=== PATIENT | male | born 1945 | race Caucasian/White ===

== ENCOUNTER → 2021-01-30 | Outpatient (CLI) | payer MEDICARE ==
--- NOTE | 2021-01-30 10:56 | CTL ---
EXAMINATION TYPE: CT Low Dose Lung DATE OF EXAM ORDERED: 01/30/2021 HISTORY: . Lung cancer screening CT DLP: 59.[address] CTDI: 1.50 mGy Automated exposure control for dose reduction was used. SCREENING VISIT: COMPARISON: TECHNIQUE: Low dose computed tomography scan was performed through the chest at 1 mm thick sections a nd reconstructed images in multiple planes at 1 mm and [address] DIAGNOSTIC QUALITY: Satisfactory FINDINGS: Biapical pleural thickening with pleural-based calcifications. There is interlobular septal thickenin g correlate for chronic interstitial pulmonary fibrosis. Emphysematous changes noted there is central bronchiectasis. There is a 5 mm subpleural nodule right superior lung apex and calcified nodule left lung apex manager wound iorly. Additional tiny sub-5 mm subpleural nodules noted. No consolidative pneumonia. Pleural-based thickening noted bilaterally. No pneumothorax or pleural ef fusion. Calcified benign granuloma measuring 7 mm left lower lobe. There is dense coronary artery calcification. Shotty adenopathy in the mediastinum with calcified lym ph nodes noted in the hilum. Heart size normal. Hypertrophic and degenerative change of the spine. There are splenic granuloma. IMPRESSION: 1. 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 2. Calcified benign nodule left lower lobe measuring 7 mm. Additional subpleural nodules as discussed above. 3. Basilar bronchiectasis with scattered areas of subsegmental consolidation most typical of atelecta sis. 4. pleural thickening and calcification correlate for asbestos related disease. CT LUNG RAD AND CT CHEST RECOMMENDATION: Lung-Rad 2 Benign Appearance or Behavior: Continue annual sc reening with LDCT in 12 months.
== END | disposition home or self-care (01) ==
LOC: RADCTMAIN 09:27
PROVIDERS: ATTEND Family Medicine
DX: Z12.2 Encounter for screening for malignant neoplasm of respiratory organs (principal); J44.9 Chronic obstructive pulmonary disease, unspecified; J47.9 Bronchiectasis, uncomplicated; J84.10 Pulmonary fibrosis, unspecified; R91.8 Other nonspecific abnormal finding of lung field
CPT/HCPCS: 71271

== ENCOUNTER 2022-06-15 13:06 | Day surgery (SDC) | payer MEDICARE ==
[~2022-06-15 13:06] MED LIST: SODIUM CHLORIDE 0.9% 1,000 ML IV SCH
[2022-06-15] MEDS ORDERED: SODIUM CHLORIDE 0.9% 1,000 ML IV ONE (13:29)
[2022-06-15 14:00] LABS: African American GFR (CKD) >90 (>60 ml/min/1.73 sqM); Anion Gap 7 mmol/L; Basophils # (A) 0.1 k/uL (0-0.2); Basophils % (A) 1 %; Blood Urea Nitrogen 10 mg/dL (9-20); Calcium 9.1 mg/dL (8.4-10.2); Carbon Dioxide 24 mmol/L (22-30); Chloride 106 mmol/L (98-107); Eosinophils # (A) 0.1 k/uL (0-0.7); Eosinophils % (A) 1 %; Glucose 105 mg/dL (74-99); HCT 39.9 % (39.0-53.0); HGB 13.3 gm/dL (13.0-17.5); Lymphocytes # (A) 2.9 k/uL (1.0-4.8); Lymphocytes % (A) 39 %; MCH 34.7 pg (25.0-35.0); MCHC 33.5 g/dL (31.0-37.0); MCV 103.7 fL (80.0-100.0); Macrocytosis Slight; Mean Platelet Volume 7.7; Monocytes # (A) 0.4 k/uL (0-1.0); Monocytes % (A) 6 %; Neutrophils # (A) 3.8 k/uL (1.3-7.7); Neutrophils % (A) 51 %; Non-African American GFR(CKD) 88 (>60 ml/min/1.73 sqM); Platelet Count 199 k/uL (150-450); Potassium 3.9 mmol/L (3.5-5.1); RBC 3.84 m/uL (4.30-5.90); RDW 11.7 % (11.5-15.5); Sodium 137 mmol/L (137-145); WBC 7.3 k/uL (3.8-10.6)
[2022-06-15] MEDS ORDERED: ISOPROTERENOL 250 MCG/1.25 ML SYR IV ONE (14:33)
[2022-06-15] MEDS ORDERED: SUCCINYLCHOLINE CHLORIDE 200 MG/10 ML VIAL IV ONE (14:33)
[2022-06-15] MEDS ORDERED: PHENYLEPHRINE-0.9% NACL SYG 1,000 MCG/10 ML SYRINGE ONE (14:33)
[2022-06-15] MEDS ORDERED: MIDAZOLAM 2 MG/2 ML VIAL ONE (14:33)
[2022-06-15] MEDS ORDERED: PROPOFOL 10 MG/ML 20 ML VIAL IV ONE (14:33)
[2022-06-15] MEDS ORDERED: HEPARIN SODIUM,PORCINE 10,000 UNIT/ML 1 ML VIAL ONE (14:33)
[2022-06-15] MEDS ORDERED: LIDOCAINE 2% INJ 20 MG/ML (2 ML VIAL) ONE (14:33)
[2022-06-15] MEDS ORDERED: fentaNYL (PF) 50 MCG/ML 2 ML AMP ONE (14:33)
[2022-06-15] MEDS ORDERED: LIDOCAINE 1% INJ 10MG/ML (20 ML MDV) ONE (14:35)
[2022-06-15] MEDS ORDERED: HEPARIN SOD,PORK IN 0.45% NACL 25,000 UNIT in 0.45% NACL 1 250ML.BAG IV ONE (14:45)
--- NOTE | 2022-06-15 14:49 | P.HPCAR ---
History of Present Illness This is Dr. Capone dictating an H/P on this patient The patient was interviewed and examined IMPRESSION / ASSESSMENT: Paroxysmal atrial fibrillation with RVR with preserved LV systolic function, right bundle branch block pattern and normal LV function Remote history of TIA currently on statins and aspirin Takes ELIQUIS intubated this morning as instructed Preserved LV systolic function on 2-D echo PLAN: A. fib ablation to be performed Continue ELIQUIS HPI Patient has a history of recurrent palpitations We have documented paroxysmal atrial fibrillation He's had an admission for A. fib with RVR He's had a stroke in 2012 TSH has been normal at 2.6 His LDL is well controlled on pravastatin His 2-D echo is normal ROS: No fever chills or rigors, no cough, phlegm or expectoration, no nausea, vomiting or diarrhea, no hematuria, dysuria, no musculoskeletal complaints, no strokes or seizures, no skin lesions. EXAMINATION: Afebrile 97.7F, pulse rate in the 80s, blood pressure 143/81 mmHg No JVD No orthopnea Clear lungs no rhonchi no crackles Normal heart sounds normal S1 normal S2 Abdomen is soft nontender Extremities are warm no edema REVIEW OF LABS, ECG & MEDICAL DATA White count 7.3 thousand Hemoglobin 13.3, platelet count 199,000 Sodium 137, potassium 3.9 BUN 10 and creatinine 0.77 Physical Exam Vitals: Vital Signs Temp Pulse Resp BP Pulse Ox 06/15/22 13:44 97.7 F 83 16 143/81 98 Intake and Output 06/14/22 06/15/22 06/15/22 22:59 06:59 14:59 Intake Total 0 Balance 0 Intake: IV 0 Other: Weight 72.2 kg Past Medical History Past Medical History: COPD, CVA/TIA, Hyperlipidemia Additional Past Medical History / Comment(s): see Dr Capone H&P, occasional diarrhea, hx intermittent SOB before medications per pt. History of Any Multi-Drug Resistant Organisms: None Reported Additional Past Surgical History / Comment(s): sx of ruptured disc in back. colonoscopy, cataracts with lenses Past Anesthesia/Blood Transfusion Reactions: No Reported Reaction Additional Past Anesthesia/Blood Transfusion Reaction / Comment(s): no blood transfusions Smoking Status: Former smoker - Past Family History Father Additional Family Medical History / Comment(s): kidney issues Sister(s) Family Medical History: Cancer Additional Family Medical History / Comment(s): sinus cancer. Physical Examination Vital Signs Temp Pulse Resp BP Pulse Ox 06/15/22 13:44 97.7 F 83 16 143/81 98 Intake and Output 06/14/22 06/15/22 06/15/22 22:59 06:59 14:59 Intake Total 0 Balance 0 Intake: IV 0 Other: Weight 72.2 kg Results 06/15/22 13:37 06/15/22 13:37 CBC 06/15/22 Range/Units 13:37 WBC 7.3 (3.8-10.6) k/uL RBC 3.84 L (4.30-5.90) m/uL Hgb 13.3 (13.0-17.5) gm/dL Hct 39.9 (39.0-53.0) % Plt Count 199 (150-450) k/uL Comprehensive Metabolic Panel 06/15/22 Range/Units 13:37 Sodium 137 (137-145) mmol/L Potassium 3.9 (3.5-5.1) mmol/L Chloride 106 (98-107) mmol/L Carbon Dioxide 24 (22-30) mmol/L BUN 10 (9-20) mg/dL Creatinine 0.77 (0.66-1.25) mg/dL Glucose 105 H (74-99) mg/dL Calcium 9.1 (8.4-10.2) mg/dL Current Medications Generic Name Dose Route Start Last Admin Trade Name Freq PRN Reason Stop Dose Admin Sodium Chloride 1,000 mls @ 20 mls/hr 06/15/22 06:01 Saline 0.9% IV 07/15/22 06:02 .Q24H CRISTELA Intake and Output 06/14/22 06/15/22 06/15/22 22:59 06:59 14:59 Intake Total 0 Balance 0 Intake: IV 0 Other: Weight 72.2 kg Patient Weight 06/16/22 06:59 Weight 72.2 kg 06/15/22 13:37 06/15/22 13:37
[2022-06-15] MEDS ORDERED: ACETAMINOPHEN TAB 325 MG TAB PO PRN ×2 (14:50→18:33)
[2022-06-15] MEDS ORDERED: LIDOCAINE 1% INJ 10MG/ML (20 ML MDV) SQ ONE (15:31)
[2022-06-15] MEDS ORDERED: IOPAMIDOL-370 100ML BTL INJ ONE (17:35)
--- NOTE | 2022-06-15 18:43 | P.EPPROC ---
- EP Procedure Note Electrophysiology Procedure Note: PROCEDURE A. fib ablation with DIAGNOSIS Atrial fibrillation, symptomatic, refractory to therapy RESULT No left atrial appendage mass seen on intracardiac echo: Normal LV function Successful A. fib ablation/pulmonary vein isolation of all veins using cryo- ablation Complete entrance block in all 4 veins confirmed Esophageal deflection YES PROCEDURE DETAILS Written informed consent prior to procedure. Patient brought to the EP lab. General anesthesia given. Heparin administered. A city maintained above 300 seconds Both groins prepped and draped per protocol and venous sheaths placed. Esophagus intubated, circa catheter for temperature monitoring an endoscope for possible esophageal deflection. Phrenic nerve monitoring performed. Esophageal temperature monitoring performed. Esophageal deflection performed if circa catheter overlapping with the balloon or circa temperature less than 27.5C Intracardiac echocardiography performed. Pericardium evaluated. Left atrial appendage evaluated. Left atrium evaluated along with pulmonary veins Transseptal catheterization performed under fluoroscopic guidance and intracardiac echo guidance Cryoablation sheath exchanged, balloon catheter along with achieve catheter placed in the left atrium. Pulmonary veins isolated in the following sequence: Left superior pulmonary vein followed by left inferior pulmonary vein, followed by right inferior pulmonary vein and lastly right superior pulmonary vein. Phrenic nerve stimulation along with capture thresholds within the SVC and right superior pulmonary vein to identify the phrenic nerve proximity to the cryo- balloon. Pulmonary veins isolated and confirmed with entrance and exit block. Phrenic nerve integrity confirmed at the end of the procedure Ablation of the left atrial septum performed with cannulation of the superior branch of the right inferior or the inferior branch of the right superior vein to achieve ablation of the posterior septum of the left atrium. Ablation of electrograms confirmed. There was a lianet of fair distance between the right superior and right inferior veins and therefore the upper tributary of the right inferior vein was cannulated 9 almost her right middle vein). There was no evidence for phrenic nerve stimulation within this vein. Cryoablation was performed. -30C noted at 30 seconds, -40C noted at 60 seconds. At 123 seconds there was paresis noted of the phrenic nerve and cryoablation was terminated instantly. Rapid Recovery of phrenic nerve function within 3-4 minutes. At the end of the procedure complete recovery of strength of the diaphragm noted. This occurred despite a negative phrenic nerve stimulation within this vein at high output Diagnostic catheters for the high right atrium, His bundle, coronary sinus placed. LA and RA pressures recorded RA pressure: 9/2/5 LA pressure: 15/0/6 Diagnostic EP study with coronary sinus pacing and recording Baseline measurements: Sinus cycle length 740 ms, NJ interval 153 ms, QRS 196 ms and QT 360 ms AH 61 and HV 45 ms AV node Wenckebach block 330 ms. On Isuprel AV node Wenckebach block 270 ms On Isuprel high dose, burst stimulation was performed from the high right atrium from 400 ms down to 200 ms. No atrial fibrillation induced Venous sheaths were removed and hemostasis assured with a closure device. Patient extubated and transferred to recovery Increase procedural time During ablation multiple attempts had to be made to move the esophagus a safe distance of the from the pulmonary vein draining cryoablation, to avoid excessive thermal cooling of the esophagus This took extra time and effort to keep the esophagus a safe distance away from the cryoablation balloon. Left-sided esophagus During ablation of the right-sided veins, phrenic nerve stimulation was not noted within the right-sided veins, either right superior orbital right inferior vein transit. We'll paresis was noted despite that but with very rapid and complete recovery of strength of the diaphragmatic contraction. We monitored the phrenic nerve for additional 32 minutes an established complete recovery of strength of the diaphragm at the end of the procedure PROCEDURES PERFORMED Diagnostic EP study CS pacing and recording Left and right transseptal catheterization Catheter the mapping of the tachycardia Intracardiac echocardiography Pulmonary vein isolation with transseptal and comprehensive EPS, 19519 Extended procedure duration Drug infusion, +26902 Left atrial roof line, +14114 Linear ablation, left atrium, +07026 Electrical cardioversion with a synchronized shock across the chest [id number]
[2022-06-15] MEDS: ACETAMINOPHEN IV (For NPO) 1,000 MG in EMPTY BAG 1 BAG IVPB ONE ×2 (18:59→19:14)
[2022-06-15] MEDS: PRAVASTATIN SODIUM 20 MG TAB PO SCH (20:12)
[2022-06-15] MEDS: APIXABAN 5 MG TAB PO SCH (20:12)
[2022-06-15] MEDS: BENZOCAINE/MENTHOL LOZENG 1 EACH LOZENGE MUCOUS MEM PRN (20:52)
[2022-06-16] MEDS: BENZOCAINE/MENTHOL LOZENG 1 EACH LOZENGE MUCOUS MEM PRN (01:24)
--- NOTE | 2022-06-16 08:26 | P.PN ---
Progress Note - Text Patient complains sore throat. Mild swelling of the lip with bruising No breathing trouble no respiratory distress Resting comfortably in bed supine On examination no hematoma and groins but the puncture site/incision site in the right groin is oozing has been losing blood It has not let up all night long but response to pressure and then status post again There is no hematoma or swelling at all On examination heart sounds are normal normal S1 normal S2 Breath sounds are clear Blood pressure 115 06 5 mmHg afebrile ulcerate in the 80s Twelve-lead EKG shows a right bundle branch block pattern sinus mechanism Impression Postoperative groin bleeding from the right groin track without any hematoma He has not responded to local pressure The Analia patch was placed today and he will be monitored for the next 24 hours to watch for any bleeding or bruising currently hematoma development Continue current medications including anticoagulation Likely discharge tomorrow Patient ambulate in the room after 2 hours of placement of the Analia patch
[2022-06-16] MEDS: APIXABAN 5 MG TAB PO SCH ×2 (09:13→20:43)
[2022-06-16] MEDS: ASPIRIN 81 MG PO SCH (09:13)
[2022-06-16] MEDS: METOPROLOL SUCCINATE (ER) 25 MG TAB.ER.24H PO SCH (09:13)
[2022-06-16] MEDS ORDERED: IBUPROFEN 400 MG TAB PO STA (15:52)
[2022-06-16] MEDS: PRAVASTATIN SODIUM 20 MG TAB PO SCH (20:43)
[2022-06-17 04:03] VITALS: TEMP 98.2
[2022-06-17] MEDS: ASPIRIN 81 MG PO SCH (08:49)
[2022-06-17] MEDS: METOPROLOL SUCCINATE (ER) 25 MG TAB.ER.24H PO SCH (08:49)
[2022-06-17] MEDS: APIXABAN 5 MG TAB PO SCH (08:49)
[2022-06-17] MEDS ORDERED: ACETAMINOPHEN TAB 325 MG TAB PO PRN (09:09)
[2022-06-17 09:59] VITALS: BP 116/71; PULSE 83; RESP 16
[2022-06-17] MEDS ORDERED: CEPHALEXIN 500 MG CAP PO STA (10:00)
--- NOTE | 2022-06-17 20:08 | P.DS ---
Providers Attending physician: Federico Capone Primary care physician: [facility] Course: Patient is doing well. Groin site is healed well line no hematoma line no chest discomfort He is a sore throat Patient underwent successful A. fib ablation He had oozing from the access site track but without any hematoma or swelling or pseudoaneurysm He was kept overnight for pressure application Analia patch was used to control oozing Pressure dressing was applied. On examination his heart sounds are normal Breath sounds are clear Vitals are stable Impression Successful A. fib ablation No vascular injury, no hematoma no pseudoaneurysm Oozing from the incision track on the right side that is controlled with pressure application successfully Plan continue current medications including ELIQUIS follow-up in the office Plan - Discharge Summary Discharge Rx Participant: No New Discharge Prescriptions: Continue Metoprolol Succinate [Metoprolol Succinate ER] 25 mg PO DAILY Apixaban [Eliquis] 5 mg PO BID Pravastatin Sodium [Pravachol] 20 mg PO HS Cyanocobalamin (Vitamin B-12) [Vitamin B-12] 1,000 mcg PO DAILY Cholestyramine (with Sugar) [Cholestyramine Packet] 4 gm PO DAILY Aspirin 81 mg PO DAILY Discharge Medication List Apixaban [Eliquis] 5 mg PO BID 06/10/22 [History] Aspirin 81 mg PO DAILY 06/10/22 [History] Cholestyramine (with Sugar) [Cholestyramine Packet] 4 gm PO DAILY 06/10/22 [History] Cyanocobalamin (Vitamin B-12) [Vitamin B-12] 1,000 mcg PO DAILY 06/10/22 [History] Metoprolol Succinate [Metoprolol Succinate ER] 25 mg PO DAILY 06/10/22 [History] Pravastatin Sodium [Pravachol] 20 mg PO HS 06/10/22 [History] Follow up Appointment(s)/Referral(s): Aj Givens DO [STAFF PHYSICIAN] - 06/24/22 2:45 pm Patient Instructions/Handouts: Cardiac Ablation (DC) Activity/Diet/Wound Care/Special Instructions: Post EP study - Ablation instructions 1. Keep access sites dry for 2 days. 2. No heavy lifting or straining for 2 days. 3. Avoid bending the hips repeatedly for 2 days. 4. You may go up and down stairs slowly Call if the following is noted 1. Bleeding, increasing swelling or pain at the access sites. 2. Increasing chest discomfort, especially upon taking a deep breath. 3. Increasing shortness of breath, at rest or with exertion. 4. Undue cough / phlegm 5. Difficulty or pain while swallowing. 6. Pain or change in color in the extremities. 7. Fever, chills, rigors. 8. Increasing headache or neurologic symptoms. 9. Dizziness, fainting, palpitations Continue anticoagulation with ELIQUIS Discharge Disposition: HOME SELF-CARE
--- NOTE | 2022-06-17 20:09 | P.PN ---
Progress Note - Text Attention medical records/billing division staff members Patient did not have any vascular injury, hematoma, pseudoaneurysm This is not a complication of the procedure Oozing from under the skin was controlled with pressure dressing
== END 2022-06-17 11:39 | disposition home or self-care (01) ==
LOC: CATHEP 13:06 → 6NMEDSUR 18:06 → CATHEP 06-17 11:39
PROVIDERS: ATTEND Internal Medicine Clinical Cardiac Electrophysiology
DX: I48.0 Paroxysmal atrial fibrillation (principal); I44.2 Atrioventricular block, complete; I45.10 Unspecified right bundle-branch block; Z86.73 Personal history of transient ischemic attack (TIA), and cerebral infarction without residual deficits; Z79.01 Long term (current) use of anticoagulants; J44.9 Chronic obstructive pulmonary disease, unspecified; E78.5 Hyperlipidemia, unspecified; Z87.891 Personal history of nicotine dependence; Z87.448 Personal history of other diseases of urinary system; Z85.22 Personal history of malignant neoplasm of nasal cavities, middle ear, and accessory sinuses
CPT/HCPCS: 93656; 93657; 93623; 80048; 85025; C1894 ×3; C1769 ×4; C1760; C1730 ×2; C1893; C1733; C1766; J2001; J0131; Q9967; J1644

== ENCOUNTER → 2024-01-10 | Outpatient (CLI) | payer MEDICARE ==
--- NOTE | 2024-01-10 10:17 | CTL ---
EXAMINATION TYPE: CT Low Dose Lung DATE OF EXAM: 01/10/2024 9:42 AM CLINICAL INDICATION: Male, 78 years old with history of Z12.2 SCREENING LUNG CA F17.210 CURRENT SMOKE R; personal hx of nicotine dependence 1/2 ppd X 50 years current smoker COPD , history of tobacco use . COMPARISON: 01/30/2021 TECHNIQUE: Multiple axial non-contrast scans were obtained from approximately the lung apices through the upper abdomen. Coronal and sagittal reformatted images were obtained. Low dose technique was uti lized. MIP were created on a separate workstation and submitted for review. CT DLP: 83.5 mGycm, Automated exposure control for dose reduction was used. CT Contrast: Contrast used: None Oral contrast used: None FINDINGS: ======== Lack of intravenous contrast and low dose technique limits the evaluation of the vascular and soft ti ssue structures. LUNGS: No evidence of pulmonary fibrosis. No evidence of focal consolidation, pneumothorax or pleural effusion. Centrilobular emphysema changes. Nodules: RUL: None. RML: None. RLL: None. HEATH: None. LLL: Calcified granuloma series 5 image 57 AIRWAY: Patent and unremarkable. HEART: Size within normal limits.Atherosclerosis of the arterial vasculature. MEDIASTINUM: No gross evidence of adenopathy. VASCULATURE: No aortic aneurysm. MUSCULOSKELETAL: No acute osseous abnormalities SOFT TISSUES/LYMPH NODES: Unremarkable. LOWER NECK: No significant findings. UPPER ABDOMEN: Scattered splenic calcified granulomas. IMPRESSION: 1. No clinically significant pulmonary nodules. 2. Mild emphysema. CT LUNG RAD AND CT CHEST RECOMMENDATION: Lung-Rad 2 Benign Appearance or Behavior: Continue annual sc reening with LDCT in 12 months. S Modifier (other clinically significant findings): None Recommend smoking cessation (if current smoker), or continuation of smoking cessation (if prior smoke r). Annual screening for lung cancer with low-dose computed tomography is recommended in adults ages 55 to 77 years who have a 30 pack-year smoking history and currently smoke or have quit within the pa st 15 years. Screening should be discontinued once a person has not smoked for 15 years or develops a health problem that substantially limits life expectancy or the ability or willingness to have curat fay lung surgery. Lung rads 2021 [email or web address] [facility], , 01/10/2024 10:15 AM
== END | disposition home or self-care (01) ==
LOC: RADCTMAIN 08:58
PROVIDERS: ATTEND Family Medicine
DX: Z12.2 Encounter for screening for malignant neoplasm of respiratory organs (principal); J43.2 Centrilobular emphysema; F17.210 Nicotine dependence, cigarettes, uncomplicated
CPT/HCPCS: 71271

== ENCOUNTER → 2024-02-17 | Outpatient (CLI) | payer MEDICARE ==
--- NOTE | 2024-02-17 08:38 | US ---
EXAMINATION TYPE: US Aorta Screening DATE OF EXAM: 02/17/2024 COMPARISON: NONE CLINICAL INDICATION: Male, 78 years old with history of Z13.6 Screening for AAA; Hx smoker. No HTN. TECHNIQUE: Multiple sonographic images of the abdominal aorta are obtained with grayscale and color D oppler imaging. with grayscale and color Doppler imaging FINDINGS: EXAM MEASUREMENTS: Abdominal Aorta: Proximal: 2.8 x 3.2 cm Mid: 1.6 x 2.1 cm Distal: 1.7 x 1.9 cm Bifurcation: Right Iliac: 1.2 x 1.5 cm Left Iliac: 1.3 x 1.5 cm IMPRESSION: No evidence for aortic aneurysm. [facility], , 02/17/2024 8:35 AM
== END | disposition home or self-care (01) ==
LOC: RADUSWWP 07:56
PROVIDERS: ATTEND Family Medicine
DX: Z13.6 Encounter for screening for cardiovascular disorders (principal); Z87.891 Personal history of nicotine dependence
CPT/HCPCS: 76706

== ENCOUNTER 2024-07-06 09:27 | Emergency (ER) | payer MEDICARE ==
[2024-07-06 09:59] LABS: Basophils # (A) 0.02 10*3/uL (0.00-0.10); Basophils % (A) 0.3 %; Eosinophils # (A) 0.04 10*3/uL (0.04-0.35); Eosinophils % (A) 0.6 %; HCT 37.9 % (39.6-50.0); Lymphocytes # (A) 1.72 10*3/uL (0.90-5.00); Lymphocytes % (A) 27.3 %; MCH 35.4 pg (27.0-32.0); MCHC 34.3 g/dL (32.0-37.0); MCV 103.3 fL (80.0-97.0); Mean Platelet Volume 9.5 fL (9.5-12.2); Monocytes # (A) 0.69 10*3/uL (0.20-1.00); Neutrophils % (A) 60.5 %; Platelet Count 174 10*3/uL (140-440); RBC 3.67 10*6/uL (4.40-5.60); RDW 12.6 % (11.5-14.5); WBC 6.29 10*3/uL (4.50-10.00)
--- NOTE | 2024-07-06 10:03 | ED ---
General Adult HPI - General Chief complaint: Arrhythmia/Palpitations Stated complaint: irregular heart rate, SOB, right leg numbness Time Seen by Provider: 07/06/24 09:39 Source: patient, RN notes reviewed, old records reviewed Mode of arrival: ambulatory Limitations: no limitations - History of Present Illness Initial comments: 79-year-old male history of atrial fibrillation presents with palpitation. Patient has a sensation of skipping heartbeat. No racing heartbeat. No dyspnea. No fever. No cough. No lower extremity pain or swelling. Patient was seen by cardiology yesterday and had an increase in his metoprolol. He does have history of atrial fibrillation. - Related Data Home Medications Medication Instructions Recorded Confirmed Apixaban [Eliquis] 5 mg PO BID 06/10/22 07/06/24 Cholestyramine (with Sugar) 4 gm PO DAILY 06/10/22 07/06/24 [Cholestyramine Packet] Metoprolol Succinate [Metoprolol 25 mg PO BID 06/10/22 07/06/24 Succinate ER] Pravastatin Sodium [Pravachol] 20 mg PO DAILY 06/10/22 07/06/24 Naproxen [Naprosyn] 500 mg PO DAILY PRN 07/06/24 07/06/24 Tamsulosin [Flomax] 0.4 mg PO DAILY 07/06/24 07/06/24 Allergies Allergy/AdvReac Type Severity Reaction Status Date / Time Sulfa (Sulfonamide Allergy Rash/Hives Verified 07/06/24 10:27 Antibiotics) Review of Systems ROS Statement: Those systems with pertinent positive or pertinent negative responses have been documented in the HPI. ROS Other: All systems not noted in ROS Statement are negative. Past Medical History Past Medical History: Atrial Fibrillation, COPD, CVA/TIA, Hyperlipidemia Additional Past Medical History / Comment(s): see Dr Capone H&P, occasional diarrhea, hx intermittent SOB before medications per pt. History of Any Multi-Drug Resistant Organisms: None Reported Additional Past Surgical History / Comment(s): sx of ruptured disc in back. colonoscopy, cataracts with lenses Past Anesthesia/Blood Transfusion Reactions: No Reported Reaction Additional Past Anesthesia/Blood Transfusion Reaction / Comment(s): no blood t ransfusions Past Psychological History: No Psychological Hx Reported Smoking Status: Former smoker Past Alcohol Use History: Daily Past Drug Use History: None Reported - Past Family History Father Additional Family Medical History / Comment(s): kidney issues Sister(s) Family Medical History: Cancer Additional Family Medical History / Comment(s): sinus cancer. General Exam Limitations: no limitations General appearance: alert, in no apparent distress Head exam: Present: atraumatic, normocephalic Eye exam: Present: normal appearance, PERRL ENT exam: Present: normal exam Neck exam: Present: normal inspection. Absent: tenderness, meningismus Respiratory exam: Present: normal lung sounds bilaterally. Absent: respiratory distress, wheezes Cardiovascular Exam: Present: regular rate, normal rhythm GI/Abdominal exam: Present: soft. Absent: distended, tenderness Extremities exam: Present: normal inspection, normal capillary refill, other (5 out of 5 strength bilateral lower extremities). Absent: calf tenderness Neurological exam: Present: alert, oriented X3, CN II-XII intact. Absent: motor sensory deficit Psychiatric exam: Present: normal affect, normal mood Skin exam: Present: warm, dry, intact Course Vital Signs 07/06/24 07/06/24 09:30 10:23 Temperature 97.7 F Pulse Rate 72 78 Respiratory 17 20 Rate Blood Pressure 96/63 92/57 O2 Sat by Pulse 97 97 Oximetry Medical Decision Making - Medical Decision Making Was pt. sent in by a medical professional or institution (, PA, SCRAP CHARGER, urgent care, hospital, or fpc...) When possible be specific @ -No Did you speak to anyone other than the patient for history (EMS, parent, family, police, friend...)? What history was obtained from this source @ -No Did you review nursing and triage notes (agree or disagree)? Why? @ -I reviewed and agree with nursing and triage notes Were old charts reviewed (outside hosp., previous admission, EMS record, old EKG, old radiological studies, urgent care reports/EKG's, fpc records)? Report findings @ -No old charts were reviewed Differential Palpitations Ventricular arrhythmias, atrial arrhythmias, myocardial infarction, anemia, thyrotoxicosis, electrolyte imbalance, hypokalemia, pulmonary embolism, pulmonary disease, drugs, alcohol, anxiety, stress.... This is not meant to be an all-inclusive list. EKG interpreted by me (3pts min.). @Sinus rhythm, right bundle branch block, rate of 63, KS interval 158, QRS duration 148 X-rays interpreted by me (1pt min.). @ -Chest x-ray, negative for acute cardiopulmonary findings CT interpreted by me (1pt min.). @ CT brain is negative for intracranial hemorrhage or mass effect, no acute findings U/S interpreted by me (1pt. min.). @ -None done What testing was considered but not performed or refused? (CT, X-rays, U/S, labs)? Why? @ -None What meds were considered but not given or refused? Why? @ -None Did you discuss the management of the patient with other professionals (professionals i.e. , PA, SCRAP CHARGER, lab, RT, psych nurse, social scientist, video editor, teacher, campus security officer, upper caser)? Give summary @ -No Was smoking cessation discussed for >3mins.? @ -No Was critical care preformed (if so, how long)? @ -No Were there social determinants of health that impacted care today? How? (Homelessness, low income, unemployed, alcoholism, drug addiction, transportation, low edu. Level, literacy, decrease access to med. care, penitentiary, rehab)? @ -No Was there de-escalation of care discussed even if they declined (Discuss DNR or withdrawal of care, Hospice)? DNR status @ -No What co-morbidities impacted this encounter? (DM, HTN, Smoking, COPD, CAD, Cancer, CVA, ARF, Chemo, Hep., AIDS, mental health diagnosis, sleep apnea, morbid obesity)? @Atrial fibrillation Was patient admitted / discharged? Hospital course, mention meds given and rout e, prescriptions, significant lab abnormalities, going to OR and other pertinent info. @ -79-year-old male presenting with palpitations, history of atrial fibrillation. Patient is in sinus rhythm. Stable vitals. Patient denied chest pain, no associated symptoms other than palpitation. He did have a brief episode of numbness to the left leg which was resolved at the time my evaluation. There is no weakness, NIH of 0. I did perform a CT as the patient is on Eliquis this was negative for intracranial hemorrhage or mass effect no acute findings. Chest x-ray shows hyperinflation without acute findings. Normal CBC, normal CMP, negative troponin. Patient observed on the monitor for several hours without arrhythmia. Patient stable for discharge with return parameters. Undiagnosed new problem with uncertain prognosis? @ -No Drug Therapy requiring intensive monitoring for toxicity (Heparin, Nitro, Insulin, Cardizem)? @ -No Were any procedures done? @ -No Diagnosis/symptom? @Palpitations, history of A-fib Acute, or Chronic, or Acute on Chronic? @ -Acute Uncomplicated (without systemic symptoms) or Complicated (systemic symptoms)? @ -Default Side effects of treatment? @ -No Exacerbation, Progression, or Severe Exacerbation? @ -No Poses a threat to life or bodily function? How? (Chest pain, [place], [place], pneumonia, PE, COPD, DKA, ARF, appy, cholecystitis, CVA, Diverticulitis, Homicidal, Suicidal, threat to staff... and all critical care pts) @ -Low risk at this time - Lab Data Result diagrams: 07/06/24 09:42 07/06/24 09:42 Lab Results 07/06/24 07/06/24 07/06/24 Range/Units 09:42 09:42 09:42 WBC 6.29 (4.50-10.00) 10*3/uL RBC 3.67 L (4.40-5.60) 10*6/uL Hgb 13.0 (13.0-17.0) g/dL Hct 37.9 L (39.6-50.0) % MCV 103.3 H (80.0-97.0) fL MCH 35.4 H (27.0-32.0) pg MCHC 34.3 (32.0-37.0) g/dL Plt Count 174 (140-440) 10*3/uL MPV 9.5 (9.5-12.2) fL Immature Gran % (Auto) 0.3 % Neutrophils % 60.5 % Lymphocytes % 27.3 % Monocytes % 11.0 % Eosinophils % 0.6 % Basophils % 0.3 % Immature Gran # 0.02 (0.00-0.04) 10*3/uL Neutrophils # 3.80 (1.80-7.70) 10*3/uL Lymphocytes # 1.72 (0.90-5.00) 10*3/uL Monocytes # 0.69 (0.20-1.00) 10*3/uL Eosinophils # 0.04 (0.04-0.35) 10*3/uL Basophils # 0.02 (0.00-0.10) 10*3/uL PT 11.0 (10.0-12.5) sec INR 1.0 (<1.2) APTT 26.7 (22.0-30.0) sec Sodium (137-145) mmol/L Potassium (3.5-5.1) mmol/L Chloride (98-107) mmol/L Carbon Dioxide (22-30) mmol/L Anion Gap mmol/L BUN (9-20) mg/dL Creatinine (0.66-1.25) mg/dL Est GFR (CKD-EPI)AfAm (>60 ml/min/1.73 sqM) Est GFR (CKD-EPI)NonAf (>60 ml/min/1.73 sqM) Glucose (74-99) mg/dL Calcium (8.4-10.2) mg/dL Magnesium (1.6-2.3) mg/dL Total Bilirubin (0.2-1.3) mg/dL AST (17-59) U/L ALT (4-49) U/L Alkaline Phosphatase (38-126) U/L Troponin I (0.000-0.034) ng/mL Total Protein (6.3-8.2) g/dL Albumin (3.5-5.0) g/dL Urine Color Yellow Urine Appearance Clear (Clear) Urine pH 6.0 (5.0-8.0) Ur Specific [place] 1.033 (1.001-1.035) Urine Protein 1+ H (Negative) Urine Glucose (UA) Negative (Negative) Urine Ketones Negative (Negative) Urine Blood Moderate H (Negative) Urine Nitrite Negative (Negative) Urine Bilirubin Negative (Negative) Urine Urobilinogen 2.0 (<2.0) mg/dL Ur Leukocyte Esterase Negative (Negative) Urine RBC 39 H (0-5) /hpf Urine WBC 3 (0-5) /hpf Ur Squamous Epith Cells <1 (0-4) /hpf Hyaline Casts 11 H (0-2) /lpf Urine Mucus Many H (None) /hpf 07/06/24 07/06/24 Range/Units 09:42 09:42 WBC (4.50-10.00) 10*3/uL RBC (4.40-5.60) 10*6/uL Hgb (13.0-17.0) g/dL Hct (39.6-50.0) % MCV (80.0-97.0) fL MCH (27.0-32.0) pg MCHC (32.0-37.0) g/dL Plt Count (140-440) 10*3/uL MPV (9.5-12.2) fL Immature Gran % (Auto) % Neutrophils % % Lymphocytes % % Monocytes % % Eosinophils % % Basophils % % Immature Gran # (0.00-0.04) 10*3/uL Neutrophils # (1.80-7.70) 10*3/uL Lymphocytes # (0.90-5.00) 10*3/uL Monocytes # (0.20-1.00) 10*3/uL Eosinophils # (0.04-0.35) 10*3/uL Basophils # (0.00-0.10) 10*3/uL PT (10.0-12.5) sec INR (<1.2) APTT (22.0-30.0) sec Sodium 135 L (137-145) mmol/L Potassium 3.7 (3.5-5.1) mmol/L Chloride 104 (98-107) mmol/L Carbon Dioxide 23 (22-30) mmol/L Anion Gap 8 mmol/L BUN 15 (9-20) mg/dL Creatinine 0.67 (0.66-1.25) mg/dL Est GFR (CKD-EPI)AfAm >90 (>60 ml/min/1.73 sqM) Est GFR (CKD-EPI)NonAf >90 (>60 ml/min/1.73 sqM) Glucose 98 (74-99) mg/dL Calcium 8.9 (8.4-10.2) mg/dL Magnesium 1.9 (1.6-2.3) mg/dL Total Bilirubin 0.7 (0.2-1.3) mg/dL AST 36 (17-59) U/L ALT 17 (4-49) U/L Alkaline Phosphatase 76 (38-126) U/L Troponin I <0.012 (0.000-0.034) ng/mL Total Protein 7.3 (6.3-8.2) g/dL Albumin 4.4 (3.5-5.0) g/dL Urine Color Urine Appearance (Clear) Urine pH (5.0-8.0) Ur Specific [place] (1.001-1.035) Urine Protein (Negative) Urine Glucose (UA) (Negative) Urine Ketones (Negative) Urine Blood (Negative) Urine Nitrite (Negative) Urine Bilirubin (Negative) Urine Urobilinogen (<2.0) mg/dL Ur Leukocyte Esterase (Negative) Urine RBC (0-5) /hpf Urine WBC (0-5) /hpf Ur Squamous Epith Cells (0-4) /hpf Hyaline Casts (0-2) /lpf Urine Mucus (None) /hpf Disposition Clinical Impression: Palpitations Disposition: HOME SELF-CARE Condition: Good Instructions (If sedation given, give patient instructions): Heart Palpitations (ED) Is patient prescribed a controlled substance at d/c from ED?: No Referrals: Marcellus Hoang Jr, DO [Primary Care Provider] - 1-2 days Time of Disposition: 11:31
--- NOTE | 2024-07-06 10:08 | XR ---
EXAMINATION TYPE: XR chest 2V DATE OF EXAM: 07/06/2024 10:05 AM COMPARISON: None CLINICAL INDICATION: Male, 79 years old with history of dysrhythmia; [facility] TECHNIQUE: XR chest 2V Frontal and lateral views of the chest. FINDINGS: Lungs/Pleura: There is flattening of the diaphragm with increased lucency of the lungs. No evidence o f pneumothorax, pleural effusion or focal consolidation. Pulmonary vascularity: Unremarkable. Heart/mediastinum: Cardiomediastinal silhouette is unremarkable. Musculoskeletal: No acute osseous pathology. Other findings: None IMPRESSION: 1. No acute cardiopulmonary disease process. 2. COPD changes. [facility], , 07/06/2024 10:06 AM
[2024-07-06 10:12] LABS: Partial Thromboplastin Time 26.7 sec (22.0-30.0)
[2024-07-06 10:16] LABS: ALT 17 U/L (4-49); AST 36 U/L (17-59); African American GFR (CKD) >90 (>60 ml/min/1.73 sqM); Albumin 4.4 g/dL (3.5-5.0); Alkaline Phosphatase 76 U/L (38-126); Anion Gap 8 mmol/L; Blood Urea Nitrogen 15 mg/dL (9-20); Calcium 8.9 mg/dL (8.4-10.2); Carbon Dioxide 23 mmol/L (22-30); Chloride 104 mmol/L (98-107); Glucose 98 mg/dL (74-99); Magnesium 1.9 mg/dL (1.6-2.3); Non-African American GFR(CKD) >90 (>60 ml/min/1.73 sqM); Potassium 3.7 mmol/L (3.5-5.1); Sodium 135 mmol/L (137-145); Total Bilirubin 0.7 mg/dL (0.2-1.3); Total Protein 7.3 g/dL (6.3-8.2)
[2024-07-06] MEDS: SODIUM CHLORIDE 0.9% 500 ML 500 ML IV ONE (10:22)
--- NOTE | 2024-07-06 10:25 | CT ---
EXAMINATION TYPE: CT brain wo con DATE OF EXAM: 07/06/2024 10:16 AM COMPARISON: None. CLINICAL INDICATION: Male, 79 years old with history of Weakness, Lt leg weakness TECHNIQUE: Brain: Axial CT images of the brain were obtained with coronal and sagittal reformats created and rev iewed. Contrast used: None. Oral contrast used: None. CT DLP: 1211.4 mGycm, Automated exposure control for dose reduction was used. FINDINGS: Brain: Extra-axial spaces: No abnormal extra-axial fluid collections. Ventricular system: Dilatation in proportion to cerebral atrophy. Cerebral parenchyma: Cerebral atrophy. No acute intraparenchymal hemorrhage or mass effect. The jean-baptiste -white junction is well differentiated. Scattered hypoattenuating areas are seen within the white mat ter. Cerebellum: Unremarkable. Mass effect: No evidence of midline shift. Intracranial vasculature: Atherosclerotic calcifications of the intracranial vessels. Soft tissues: Normal. Calvarium/osseous structures: No depressed skull fracture. Paranasal sinuses and mastoid air cells: Mild scattered paranasal sinus disease. Visualized orbits: Orbital contents are intact. IMPRESSION: 1. No acute intracranial process. 2. Nonspecific white matter changes, likely secondary to chronic small vessel ischemic disease. [facility], , 07/06/2024 10:23 AM
[2024-07-06 10:40] LABS: Appearance,Urine Clear (Clear); Bilirubin,Urine Negative (Negative); Blood,Urine Moderate (Negative); Color,Urine Yellow; Glucose,Urine (UA) Negative (Negative); Hyaline Casts,Urine 11 /lpf (0-2); Ketones,Urine Negative (Negative); Leukocyte Esterase,Urine Negative (Negative); Mucus,Urine Many /hpf; Nitrite,Urine Negative (Negative); Protein,Urine 1+ (Negative); RBC,Urine 39 /hpf (0-5); Specific Gravity,Urine 1.033 (1.001-1.035); Squamous Epithelial Cell,Urine <1 /hpf (0-4); WBC,Urine 3 /hpf (0-5)
[2024-07-06 11:43] VITALS: BP 104/65; PULSE 64; RESP 19; TEMP 97.8
== END 2024-07-06 11:51 | disposition home or self-care (01) ==
LOC: EC 09:27
DX: R00.2 Palpitations (principal); Z86.73 Personal history of transient ischemic attack (TIA), and cerebral infarction without residual deficits; I48.91 Unspecified atrial fibrillation; Z87.891 Personal history of nicotine dependence; Z88.2 Allergy status to sulfonamides
CPT/HCPCS: 36415; 70450; 71046; 80053; 81001; 83735; 84484; 85025; 85610; 85730; 93005; 96360; 99285

== ENCOUNTER → 2024-07-07 | Outpatient (CLI) | payer MEDICARE ==
[2024-07-08 07:33] LABS: HCT 33.9 % (39.6-50.0); HGB 11.1 g/dL (13.0-17.0); MCHC 32.7 g/dL (32.0-37.0); Mean Platelet Volume 10.5 FL (9.5-12.2); NRBC Per 100 WBC 0 X 10*3/uL (0.00-0.01); Platelet Count 168 X 10*3/uL (140-440); RBC 3.26 X 10*6/uL (4.40-5.60); RDW 12.1 % (11.5-14.5); WBC 8.73 X 10*3/uL (4.50-10.00)
[2024-07-08 07:44] LABS: Blood Urea Nitrogen 7.8 mg/dL (9.0-27.0); Calcium 8.4 mg/dL (8.7-10.3); Carbon Dioxide 21.6 mmol/L (21.6-31.8); Chloride 100 mmol/L (96-109); Glucose 109 mg/dL (70-110); Potassium 3.9 mmol/L (3.5-5.5); Sodium 134 mmol/L (135-145)
== END | disposition home or self-care (01) ==
LOC: LABWHC1 11:42
PROVIDERS: ATTEND Internal Medicine
DX: I48.0 Paroxysmal atrial fibrillation (principal)
CPT/HCPCS: 36415; 80048; 84443; 85027

== ENCOUNTER → 2024-10-26 | Outpatient (CLI) | payer MEDICARE ==
--- NOTE | 2024-10-26 10:01 | US ---
EXAMINATION TYPE: US scrotum with doppler. DATE OF EXAM: 10/26/2024 COMPARISON: NONE CLINICAL INDICATION: Male, 79 years old with history of N50.812 PAIN IN L TESTICULAR , N50.89 TESTIC MASS; Pain left testicle x a couple months. Patient states he has felt a mass in left testicle for de cades. TECHNIQUE: Grayscale, color Doppler and spectral Doppler imaging of the scrotum. FINDINGS: EXAM MEASUREMENTS: TESTICLES: Right Testicle: 3.8 x 2.9 x 1.9 cm. Appears heterogeneous. Left Testicle: 4.1 x 2.5 x 1.5 cm. Appears heterogeneous. EPIDIDYMIS HEAD: Right Epididymis: 0.9 x 1.1 x 1.3 cm Left Epididymis: 0.9 x 1.3 x 0.7 cm Doppler performed to assess for testicular vascularity; bilateral color flow and spectral waveforms a re seen. Presence of hydroceles: Yes, right: 4.5 x 2.2 x 0.7 cm. Presence of varicoceles: Prominent vessels on the right measure 3 mm. Varicoceles on left measure 6 mm. IMPRESSION: 1. Heterogeneous pattern to the testes bilaterally is nonspecific. No discrete mass. A mild orchitis would be in the differential diagnosis. 2. Small amount of right hydrocele. 3. Left varicocele. [facility], , 10/26/2024 9:59 AM
== END | disposition home or self-care (01) ==
LOC: RADUSWWP 08:59
PROVIDERS: ATTEND Family Medicine
DX: N50.89 Other specified disorders of the male genital organs (principal); N43.3 Hydrocele, unspecified; I86.1 Scrotal varices
CPT/HCPCS: 76870; 93975